=== PATIENT | female | born 1990 | race Two or more races ===

== ENCOUNTER 2024-07-09 09:28 | Emergency (ER) | payer OTHER, SELFPAY ==
[2024-07-09 09:50] VITALS: BP 123/85; PULSE 74; RESP 16; TEMP 37.1; O2SAT 98; BMI 29.6
--- NOTE | 2024-07-09 09:50 | XR_ITS ---
Examination: Pelvic ultrasound, transabdominal, complete Technique: Transabdominal ultrasound of the pelvis performed using grayscale imaging Date and time of exam: July 09, 2024 1004 hours INDICATIONS: Left pelvic pain beginning one week ago, vaginal bleeding beginning 5 days ago FINDINGS: Uterus 9.7 x 4.4 x 5.0 cm Endometrial stripe 0.6 cm No uterine mass or intrauterine gestation Right ovary 2.8 x 1.8 x 3.2 cm arterial flow Left ovary 4.9 x 2.6 x 3.6 cm arterial flow Left ovarian cysts 2.7 x 3.1 x 2.2 cm, 3.2 x 2.1 x 2.9 cm with mild internal debris IMPRESSION: No uterine mass or intrauterine gestation Left ovarian cyst, 2.7 x 3.1 x 2.2 cm, 3.2 x 2.1 x 2.9 cm Suggest 6 month follow-up transabdominal pelvic sonography
[2024-07-09 10:47] LABS: Basophils % (Auto) 1 % (0-2.5); Eosinophils # (Auto) 0.1 Thou/mm3 (0.0-0.5); Eosinophils % (Auto) 1 % (0-10); Hematocrit 40.8 % (36.0-46.0); Hemoglobin 13.7 g/dL (12.0-16.0); Immature Granulocytes % (Auto) 0 % (0-0); Immature Granulocytes Auto 0.02 Thou/mm3 (0.00-0.00); Lymphocytes # (Auto) 2.3 Thou/mm3 (1.0-4.8); Lymphocytes % (Auto) 30 % (10-50); Mean Corpuscular HGB Conc 33.6 g/dl (31.0-37.0); Mean Corpuscular Volume 86 fL (80-100); Monocytes # (Auto) 0.7 Thou/mm3 (0.0-0.8); Monocytes % (Auto) 9 % (0-12); Neutrophils # (Auto) 4.6 Thou/mm3 (1.8-7.7); Neutrophils % (Auto) 60 % (37-80); Nucleated Red Blood Cell % 0 /100 WBC (0); Platelet Count 335 Thou/mm3 (140-440); RDW Standard Deviation 40.3 fL (36.4-46.3); Red Blood Count 4.73 Miln/mm3 (4.00-5.20); White Blood Count 7.6 Thou/mm3 (3.6-11.0)
[2024-07-09 11:05] LABS: Alanine Aminotransferase 15 U/L (10-49); Albumin, Serum 4.9 gm/dL (3.5-5.0); Alkaline Phosphatase 91 U/L (46-116); Anion Gap 9 (7-16); Aspartate Amino Transferase 18 U/L (0-34); BUN/Creatinine Ratio 14 Ratio (12-20); Bilirubin,Total 0.7 mg/dL (0.3-1.2); Blood Urea Nitrogen 10 mg/dL (9-23); Calcium 9.4 mg/dL (8.3-10.6); Calcium (Corrected) 9.4 mg/dL (8.5-10.1); Carbon Dioxide 25.5 mMol/L (20.0-31.0); Chloride 101 mMol/L (98-107); Creatinine (Component) 0.7 mg/dL (0.6-1.3); Estimated Creatinine Clearance 85.8 mL/min (>60); Globulin 2.5 gm/dL (2.3-3.5); Glucose 94 mg/dL (74-106); Lipase 51 U/L (12-53); Osmolality,Calculated 269 (275-295); Potassium 4.3 mMol/L (3.4-5.1); Sodium 135 mMol/L (136-145); Total Protein 7.4 gm/dL (5.7-8.2); eGFR > 60 See Note
[2024-07-09 13:10] LABS: Collection Type, Urine Clean Catch
[2024-07-09 13:22] LABS: HCG Qualitative,Urine Negative
[2024-07-09 13:27] LABS: Bilirubin,Urine Negative (Negative); Blood,Urine 2+ (Negative); Clarity,Urine Clear (Clear/Hazy); Color,Urine Lt-Yellow (Lt Yel-Yel); Culture Indicated,Urine Not Indicated; Glucose, Urine Negative (Negative); Ketones,Urine Negative (Negative); Leukocyte Esterase,Urine Negative (Negative); Nitrite,Urine Negative (Negative); Protein,Urine Negative (Neg - Trace); RBC,Urine 4 /hpf (0-3); Specific Gravity,Urine 1.016 (1.001-1.035); Squamous Epithelial Cell,Urine < 1 /hpf (0-5); Urobilinogen,Urine Negative mg/dL (0.0-1.0); WBC,Urine < 1 /hpf (0-5)
--- NOTE | 2024-07-09 16:20 | PD.EDABDPN ---
ED Abdominal Pain RME/HPI General Chief Complaint: Abdominal Pain Stated complaint: left lower ab pain x 1 week Time seen by provider: 07/09/24 09:36 Arrival date/time: 07/09/24 09:28 33-year-old female presents to the emergency department today with complaint of left sided pelvic pain ongoing x 1 week patient has history of ovarian cyst Limitations: no limitations Related Data Previous Rx's ?Medication ?Instructions ?Recorded cyclobenzaprine 5 mg tablet 5 mg PO Q8H PRN muscle spasm #20 05/30/22 tabs ibuprofen 600 mg tablet 600 mg PO Q6H PRN pain #30 tabs 05/30/22 ibuprofen 600 mg tablet 600 mg PO Q6H #30 tabs 07/09/24 Allergies Allergy/AdvReac Type Severity Reaction Status Date / Time No Known Allergies Allergy Verified 07/09/24 09:29 Review of Systems Review of Systems Systems Reviewed: All systems reviewed, normal except as documented Constitutional Constitutional: Reports system reviewed and no additional complaints, except as documented, Denies fever(s) and Denies headache(s) Eyes Eyes: Reports system reviewed and no additional complaints, except as documented and Denies blurry vision ENT Ears, Nose, Mouth, and Throat: Reports system reviewed and no additional complaints, except as documented, Denies headache(s), Denies nasal congestion and Denies nasal discharge Cardiovascular Cardiovascular: Reports system reviewed and no additional complaints, except as documented, Denies chest pain and Denies dyspnea Respiratory Respiratory: Reports system reviewed and no additional complaints, except as documented, Denies chest congestion, Denies cough and Denies dyspnea Gastrointestinal Gastrointestinal: Reports system reviewed and no additional complaints, except as documented and Denies abdominal pain Genitourinary Genitourinary: Reports system reviewed and no additional complaints, except as documented, Denies abnormal vaginal bleeding and Reports other (Pelvic pain) Integumentary/Breasts Skin/Breast: Reports system reviewed and no additional complaints, except as documented and Denies rash Neurologic Neurologic: Reports system reviewed and no additional complaints, except as documented, Reports as per HPI and Denies headache(s) Past Medical History Past Medical History NEUROLOGIC: Negative Neurological Disorders CARDIAC: Negative Cardiac Disorders ED Exam General Limitations: Present no limitations General appearance: Present alert and in no apparent distress Head Head exam: Present atraumatic, normocephalic and normal inspection Eye Eye exam: Present normal appearance, PERRL and EOMI; Absent conjunctival injection ENT ENT exam: Present normal exam, normal oropharynx and mucous membranes moist Neck Neck exam: Present normal inspection, full ROM and trachea midline Chest Chest inspection: Present normal inspection and symmetric chest wall rise Respiratory Respiratory exam: Present normal lung sounds bilaterally; Absent respiratory distress Cardiovascular Cardiovascular exam: Present regular rate, normal rhythm and normal heart sounds Abdominal Exam Abdominal exam: Present soft and normal bowel sounds; Absent distention, tenderness, guarding, rebound or rigidity Extremities Exam Extremities exam: Present normal inspection and full ROM Back Exam Back exam: Present normal inspection and full ROM Neurological Exam Neurological exam: Present alert, oriented X3, CN II-XII intact, normal gait and reflexes normal; Absent motor sensory deficit Psychiatric Psychiatric exam: Present normal affect and normal mood Skin Skin exam: Present warm, dry, intact and normal color Course Quality Measures none Orders Category Date Time Status US pelvic complete Stat Exams 07/09/24 09:50 Completed CBC Stat Lab 07/09/24 10:30 Completed Comprehensive Metabolic Panel Stat Lab 07/09/24 10:30 Completed HCG Qualitative,Urine Stat Lab 07/09/24 12:15 Completed Lipase Stat Lab 07/09/24 10:30 Completed UA, C/S IF [Urinalysis, C/S if Indicated] Stat Lab 07/09/24 12:15 Completed Vital Signs Vital signs: Vital Signs Temperature 98.8 F 07/09/24 09:50 Pulse Rate 74 07/09/24 09:50 Respiratory Rate 16 07/09/24 09:50 Blood Pressure 123/85 H 07/09/24 09:50 Pulse Oximetry (%) 98 07/09/24 09:50 Oxygen Delivery Method Room Air 07/09/24 09:50 O2 saturation 98% room air within the limits Abdominal Pain MDM MDM Narrative MDM Narrative:: 33-year-old female presents to the emergency department today with complaint of left sided pelvic pain ongoing x 1 week patient has history of ovarian cyst On exam patient well-appearing patient is well-appearing or toxic patient's not appear acute distress patient is soft nontender abdomen Exam patient does have pelvic pain Lab work and UA obtained No acute emergent findings noted ultrasound consistent with ovarian cyst x 2 Patient struck to follow-up with [facility] for further evaluation and possible surgical intervention on an outpatient basis Patient data External records reviewed:: [facility] previous records Clinical information provided by:: patient Social determinants that could affect healthcare access:: none Patient has the following chronic illnesses:: None How is presenting disease/condition affected by chronic disease/condition?: no chronic disease Evaluation data The following diagnostics were reviewed and interpreted by me:: lab results and radiology exam(s) Lab and/or radiology exams considered but not ordered:: Labs and radiology obtained Interpretation Summary: Reviewed by me Medications / Prescriptions Medications or Prescriptions considered but not ordered:: Given Medication administrations:: Given Consultations Consultation(s) initiated? (list below): No Diagnosis Differential diagnosis abdominal pain: abdominal pain, acute appendicitis, calculus of kidney, constipation and diverticulitis Most likely diagnosis given after review of the tests above:: Ovarian cyst Admission Indicated Admission indicated?: not indicated Admission Request Was there a request for admission?: No Disposition Plan Disposition Plan: Discharge Discharge Attestation Discharge Attestation: The patient and all family members were given an opportunity to ask questions and understood the discharge instructions. Discharge instructions specifically effects, indications for sooner follow up or return to the emergency department, and the expected course of current diagnosis. Patient condition: Stable Discharge Plan Plan Patient Disposition: HOME (Self Care) Disposition Comment: Stable Prescriptions/Referrals Prescriptions/Med Rec: New ibuprofen 600 mg tablet 600 mg PO Q6H Qty: 30 0RF No Action ibuprofen 600 mg tablet 600 mg PO Q6H PRN (Reason: pain) Qty: 30 0RF cyclobenzaprine 5 mg tablet 5 mg PO Q8H PRN (Reason: muscle spasm) Qty: 20 0RF Referrals: Sofy Zapata FNP [Primary Care Provider] - In 1 week Problem List Clinical Impression: Ovarian cyst Patient/Caregiver Discharge Instructions Education Materials: ED Ovarian Cyst Additional Instructions: Please follow up with your primary care doctor in the next 24-48hrs for any worsening symptoms return here immediately Print Language: Icelandic Stand Alone Forms: Sabi Award Info., Patient Portal Info Letter WARREN/DARIA Supervising Physician WARREN/DARIA Supervising Physician: Dr. Soria
== END 2024-07-09 14:11 | disposition home or self-care (01) ==
PROVIDERS: Nurse Practitioner Primary Care; Emergency Provider Emergency Medicine; PCP Registered Nurse
DX: N83.202 Unspecified ovarian cyst, left side (principal)
CPT/HCPCS: 36415; 76856; 80053; 81001; 81025; 83690; 85025; 99284

== ENCOUNTER 2024-09-01 19:17 | Emergency (ER) | payer OTHER, SELFPAY ==
[2024-09-01 19:18] VITALS: BMI 29.6
[2024-09-01 19:38] VITALS: BP 116/82; PULSE 110; RESP 20; TEMP 37.3; O2SAT 100
--- NOTE | 2024-09-01 19:44 | XR_ITS ---
Examination: PA chest single view TECHNIQUE: Upright PA chest single view. Examination time: September 01, 2024 1849 hours INDICATIONS: Coughing leading to week ago. FINDINGS: Normal heart size. Lungs are clear. The osseous structures are intact IMPRESSION: No active disease
--- NOTE | 2024-09-01 19:45 | EDNOTE_ITS ---
Upper Respiratory Inf. RME/HPI General Chief Complaint: Flu Like Symptoms Stated Complaint: COUGH Time Seen by Provider: 09/01/24 19:25 Source: patient, RN notes reviewed and old records reviewed Arrival date/time: 09/01/24 19:17 Mode of arrival: ambulatory Limitations: no limitations RME / HPI RME / HPI Narrative: 33yof presents to ED for 2-week history of congestion and cough. Patient reports intermittent fever the past week with headache, body aches and mild sob with coughing spells. Patient saw PCP last and was prescribed Augmentin and promethazine, symptoms have not improved since initiating medications. No cp, n/v or dizziness reporrted. No known sick contacts. Related Data Previous Rx's ?Medication ?Instructions ?Recorded cyclobenzaprine 5 mg tablet 5 mg PO Q8H PRN muscle spa sm #20 05/30/22 tabs ibuprofen 600 mg tablet 600 mg PO Q6H PRN pain #30 t abs 05/30/22 ibuprofen 600 mg tablet 600 mg PO Q6H #30 tabs 07/09 albuterol sulfate 90 mcg/actuation 2 inh inhalation Q4 H PRN shortness 09/01/24 aerosol inhaler of breath or wheezing #18 gr ams benzonatate 100 mg capsule 100 mg PO Q6H PRN cough #30 caps 09/01/24 prednisone 50 mg tablet 50 mg PO QDAY 5 days #5 tabs 09/01/24 Allergies Allergy/AdvReac Type Severity Reaction Status Date / Time No Known Allergies Allergy Verified 09/01/24 19:18 Review of Systems Review of Systems Systems Reviewed: All systems reviewed, normal except as documented Constitutional Constitutional: Reports body ache(s), Reports chills, Reports fever(s) and Reports headache(s) ENT Ears, Nose, Mouth, and Throat: Reports headache(s) and Reports nasal congestion Cardiovascular Cardiovascular: Denies chest pain and Reports dyspnea Respiratory Respiratory: Reports cough and Reports dyspnea Gastrointestinal Gastrointestinal: Denies nausea and Denies vomiting Musculoskeletal Musculoskeletal: Reports myalgias Neurologic Neurologic: Reports headache(s) Past Medical History Surgical History SURGICAL: Positive Abdominal Surgery (appendectomy) Social History SMOKING STATUS: Never smoker SUBSTANCE USE: does not use ALCOHOL: Never Past Medical History Comments PMH COMMENT: denies pmhx ED Exam General Limitations: Present no limitations General appearance: Present alert and in no apparent distress Head Head exam: Present atraumatic and normocephalic Eye Eye exam: Present normal appearance, PERRL and EOMI ENT ENT exam: Present normal oropharynx, mucous membranes moist, TM's normal bilaterally and other (Mild UAC) Neck Neck exam: Present normal inspection and full ROM Chest Chest inspection: Present normal inspection and symmetric chest wall rise Respiratory Respiratory exam: Present normal lung sounds bilaterally and other (No wheezing, rales or rhonchi); Absent respiratory distress Cardiovascular Cardiovascular exam: Present normal rhythm and tachycardia (mild) Extremities Exam Extremities exam: Present normal inspection and full ROM Neurological Exam Neurological exam: Present alert and oriented X3 Psychiatric Psychiatric exam: Present normal affect and normal mood Skin Skin exam: Present warm, dry, intact and normal color Course Quality Measures none Orders Category Date Time Status Bedside COVID-19 Antigen Test NOW Care 09/01/24 19:44 Completed Bedside Influenza A&B Antigen Test NOW Care 09/01/24 19:44 Completed CXR [XR chest 1V] Stat Exams 09/01/24 19:44 Completed Acetaminophen Tab [Tylenol ES Tab] Med 09/01/24 19:44 Discontinued 1,000 mg PO X1 ONE Vital Signs Vital signs: Vital Signs Temperature 99.2 F 09/01/24 19:38 Pulse Rate 110 H 09/01/24 19:38 Respiratory Rate 20 09/01/24 19:38 Blood Pressure 116/82 09/01/24 19:38 Pulse Oximetry (%) 100 09/01/24 19:38 Oxygen Delivery Method Room Air 09/01/24 19:38 Upper Respiratory Infection MDM Narrative MDM Narrative:: 33yof presents to ED for 2-week history of congestion and cough. Patient reports intermittent fever the past week with headache, body aches and mild sob with coughing spells. Patient saw PCP last and was prescribed Augmentin and promethazine, symptoms have not improved since initiating medications. No cp, n/v or dizziness reporrted. No known sick contacts. Will treat for bronchitis. Patient is nontoxic-appearing, afebrile, vitals are stable. No evidence respiratory distress or hypoxia. Encouraged rest, fluids, symptomatic treatment prn. Stable for discharge, RTED precautions given. Patient data External records reviewed:: [facility] previous records (03/09/2025 ED visit for ovarian cyst) Clinical information provided by:: patient Social determinants that could affect healthcare access:: none Patient has the following chronic illnesses:: None How is presenting disease/condition affected by chronic disease/condition?: no chronic disease Evaluation data The following diagnostics were reviewed and interpreted by me:: lab results and radiology exam(s) Lab and/or radiology exams considered but not ordered:: None Interpretation Summary: CXR: no pneumonia per my read covid/flu negative Medications / Prescriptions Medications or Prescriptions considered but not ordered:: No antibiotics recommended at this time Medication administrations:: Medication Administration History Discontinued Medications Acetaminophen (Acetaminophen 500 Mg Tablet) 1,000 mg PO X1 ONE Stop: 09/01/24 19:45 Last Admin: 09/01/24 19:53 Dose: 1,000 mg Documented By: AC Above medication administered in ED Consultations Consultation(s) initiated? (list below): No Diagnosis Upper Respiratory Differential Diagnosis: other (URI, COVID, flu, bronchitis, pneumonia, viral illness) Most likely diagnosis given after review of the tests above:: Bronchitis Admission Indicated Admission indicated?: not indicated Admission Request Was there a request for admission?: No Disposition Plan Disposition Plan: Discharge Discharge Attestation Discharge Attestation: The patient and all family members were given an opportunity to ask questions and understood the discharge instructions. Discharge instructions specifically effects, indications for sooner follow up or return to the emergency department, and the expected course of current diagnosis. Patient condition: Stable Discharge Plan Plan Patient Disposition: HOME (Self Care) Patient condition on transfer: Stable Prescriptions/Referrals Prescriptions/Med Rec: New prednisone 50 mg tablet 50 mg PO QDAY 5 Days Qty: 5 0RF albuterol sulfate 90 mcg/actuation HFA aerosol inhaler 2 inh inhalation Q4H PRN (Reason: shortness of breath or wheezing) Qty: 18 0RF benzonatate 100 mg capsule 100 mg PO Q6H PRN (Reason: cough) Qty: 30 0RF No Action ibuprofen 600 mg tablet 600 mg PO Q6H PRN (Reason: pain) Qty: 30 0RF cyclobenzaprine 5 mg tablet 5 mg PO Q8H PRN (Reason: muscle spasm) Qty: 20 0RF ibuprofen 600 mg tablet 600 mg PO Q6H Qty: 30 0RF Referrals: Sofy Zapata FNP [Primary Care Provider] - In 1 week Problem List Clinical Impression: Bronchitis Patient/Caregiver Discharge Instructions Education Materials: ED Bronchitis, No Antibiotic (Adult) Print Language: Yoruba Stand Alone Forms: Sabi Award Info., Patient Portal Info Letter PA/STRIPPING AND BOOKING MACHINE OPERATOR Supervising Physician PA/STRIPPING AND BOOKING MACHINE OPERATOR Supervising Physician: Estella
[2024-09-01] MEDS: ACETAMINOPHEN 500 MG TABLET 1000 MG PO (19:53)
[2024-09-01 21:33] VITALS: RESP 18
== END 2024-09-01 21:34 | disposition home or self-care (01) ==
PROVIDERS: Emergency Provider Emergency Medicine; PCP Registered Nurse
DX: J40 Bronchitis, not specified as acute or chronic (principal)
CPT/HCPCS: 71045; 87400; 87811; 99283; A9270

== ENCOUNTER → 2024-10-13 | Outpatient (CLI) | payer OTHER, SELFPAY ==
--- NOTE | 2024-10-13 10:02 | XR_ITS ---
Examination: CT chest, without intravenous contrast. Sagittal and coronal 2-D reconstructions. Exam date and time: October 13, 2024 1054 hours INDICATIONS: Right-sided chest pain coughing beginning 2 months ago CTDI:vol (mGy) 9.81 DLP: (mGycm) 329 Technique: Multiple 3.0 mm axial sections of the chest to been obtained. Bone and lung density settings are obtained. Sagittal and coronal 2-D reconstructions have been obtained. Low dose protocols were performed. One or more of the following dose reduction techniques were used; automated exposure control, adjustment of the mA and/or KV according to patient size, use of iterative reconstruction technique. Findings: No thoracic aortic aneurysm dilatation Pulmonary artery segments are not enlarged No paratracheal tracheobronchial or bronchopulmonary adenopathy. No pneumonia or pulmonary edema or pleural disease Fatty liver No gallstones No pancreatic or adrenal mass Kidneys partially visualized no hydronephrosis Osseous structures intact IMPRESSION: No mediastinal lymphadenopathy No pneumonia, pulmonary edema or pleural disease
[2024-10-13 10:40] LABS: HCG Qualitative,Urine Negative
== END | disposition home or self-care (01) ==
PROVIDERS: PCP Registered Nurse; Referring Provider Family Medicine; Visit Provider Family Medicine
DX: R05.3 Chronic cough (principal); Z32.00 Encounter for pregnancy test, result unknown
CPT/HCPCS: 71250; 81025

== ENCOUNTER 2024-12-03 08:30 | Emergency (ER) | payer OTHER, SELFPAY ==
[2024-12-03 08:41] VITALS: BP 137/94; PULSE 90; RESP 18; TEMP 36.7; O2SAT 98
--- NOTE | 2024-12-03 08:42 | XR_ITS ---
Examination: Duplex scan of the upper extremity, unilateral left Date and time of exam: December 03, 2024 0902 hours INDICATIONS: Left arm and shoulder pain beginning one week ago Technique: Duplex scan of the extremity veins using B-mode/grayscale imaging and Doppler spectral analysis and color flow Attention is directed to internal echogenicity, compression and augmentation involving these veins, color flow assessment, spectral analysis Findings: Major deep venous structures in the extremity demonstrate normal course and caliber. There is no evidence of deep vein thrombosis. Normal color flow and spectral analysis Impression: Negative for DVT..
--- NOTE | 2024-12-03 08:42 | XR_ITS ---
Examination: Wrist, left 3 views Technique: Wrist AP, oblique, lateral 3 views Date and time of exam: December 03, 2024 0933 hours INDICATIONS: Injury to the wrist this week, wrist pain FINDINGS: No fracture or dislocation. No cortical bone destruction. No opaque foreign body IMPRESSION: No fracture
--- NOTE | 2024-12-03 08:42 | XR_ITS ---
Examination: Shoulder,left, 3 views Technique: Shoulder AP internal rotation, AP external rotation, Y view shoulder, 3 views Exam date and time :December 03, 2024 0933 hours INDICATIONS: Injury to the shoulder one month ago, shoulder pain FINDINGS: No shoulder fracture or dislocation No AC joint separation IMPRESSION: No shoulder fracture or dislocation
[2024-12-03] MEDS: DIAZEPAM 5 MG TABLET 10 MG PO (08:52)
[2024-12-03] MEDS: IBUPROFEN TAB 600 MG TABLET PO (08:52)
--- NOTE | 2024-12-03 10:34 | PD.EDUPEX ---
Upper Extremity Injury RME/HPI General Chief Complaint: Extremity Injury, Upper Stated Complaint: Left shoulder pain and left arm pain X 1 week Time Seen by Provider: 12/03/24 08:35 Arrival date/time: 12/03/24 08:30 33-year-old female presents emergency department today with complaints of 1 week history of left arm pain patient reports pain is mostly in the shoulder and left wrist patient worse no direct trauma patient ports no chest pain shortness of breath or abdominal pain no chance of Limitations: no limitations Related Data Previous Rx's ?Medication ?Instructions ?Recorded cyclobenzaprine 5 mg tablet 5 mg PO Q8H PRN muscle spasm #20 05/30/22 tabs ibuprofen 600 mg tablet 600 mg PO Q6H PRN pain #30 tabs 05/30/22 ibuprofen 600 mg tablet 600 mg PO Q6H #30 tabs 07/09/24 albuterol sulfate 90 mcg/actuation 2 inh inhalation Q4H PRN shortness 09/01/24 aerosol inhaler of breath or wheezing #18 grams benzonatate 100 mg capsule 100 mg PO Q6H PRN cough #30 caps 09/01/24 cyclobenzaprine 10 mg tablet 10 mg PO TID PRN muscle spasm 10 12/03/24 days #30 tab-caps ibuprofen 600 mg tablet 600 mg PO Q6H #30 tabs 12/03/24 Allergies Allergy/AdvReac Type Severity Reaction Status Date / Time No Known Allergies Allergy Verified 12/03/24 08:34 Review of Systems Review of Systems Systems Reviewed: All systems reviewed, normal except as documented Constitutional Constitutional: Reports system reviewed and no additional complaints, except as documented, Denies fever(s) and Denies headache(s) Eyes Eyes: Reports system reviewed and no additional complaints, except as documented and Denies blurry vision ENT Ears, Nose, Mouth, and Throat: Reports system reviewed and no additional complaints, except as documented, Denies headache(s), Denies nasal congestion and Denies nasal discharge Cardiovascular Cardiovascular: Reports system reviewed and no additional complaints, except as documented, Denies chest pain and Denies dyspnea Respiratory Respiratory: Reports system reviewed and no additional complaints, except as documented, Denies chest congestion, Denies cough and Denies dyspnea Gastrointestinal Gastrointestinal: Reports system reviewed and no additional complaints, except as documented and Denies abdominal pain Musculoskeletal Musculoskeletal: Reports system reviewed and no additional complaints, except as documented, Denies deformity, Denies numbness, Reports stiffness and Denies tingling Integumentary/Breasts Skin/Breast: Reports system reviewed and no additional complaints, except as documented and Denies rash Neurologic Neurologic: Reports system reviewed and no additional complaints, except as documented, Reports as per HPI, Denies headache(s), Denies numbness and Denies tingling Past Medical History Past Medical History NEUROLOGIC: Negative Neurological Disorders CARDIAC: Negative Cardiac Disorders or Congestive Heart Failure RESPIRATORY: Negative Chronic Obstructive Pulmonary Disease (COPD) GENITOURINARY: Negative Renal Disease ENDOCRINE: Negative Diabetes Mellitus Type 1 or Diabetes Mellitus Type 2 Surgical History SURGICAL: Positive Abdominal Surgery (appendectomy) Social History SMOKING STATUS: Never smoker SUBSTANCE USE: does not use ED Exam General Limitations: Present no limitations General appearance: Present alert and in no apparent distress Head Head exam: Present atraumatic, normocephalic and normal inspection Eye Eye exam: Present normal appearance, PERRL and EOMI; Absent conjunctival injection ENT ENT exam: Present normal exam, normal oropharynx and mucous membranes moist Neck Neck exam: Present normal inspection, full ROM and trachea midline Chest Chest inspection: Present normal inspection and symmetric chest wall rise Respiratory Respiratory exam: Present normal lung sounds bilaterally Cardiovascular Cardiovascular exam: Present regular rate, normal rhythm and normal heart sounds Abdominal Exam Abdominal exam: Present soft and normal bowel sounds Extremities Exam Extremities exam: Present full ROM, tenderness (Pain left shoulder and left wrist) and normal capillary refill; Absent joint swelling Back Exam Back exam: Present normal inspection and full ROM Neurological Exam Neurological exam: Present alert, oriented X3 and CN II-XII intact Psychiatric Psychiatric exam: Present normal affect and normal mood Skin Skin exam: Present warm, dry, intact and normal color Course Quality Measures none Orders Category Date Time Status US venous doppler UE LT Stat Exams 12/03/24 08:42 Completed XR shoulder LT min 2V Stat Exams 12/03/24 08:42 Completed XR wrist comp LT min 3V Stat Exams 12/03/24 08:42 Completed Diazepam [Valium] Med 12/03/24 08:43 Discontinued 10 mg PO X1 ONE Ibuprofen Tab [Motrin Tab] Med 12/03/24 08:43 Discontinued 600 mg PO X1 ONE Vital Signs Vital signs: Vital Signs Temperature 98.0 F 12/03/24 08:41 Pulse Rate 90 12/03/24 08:41 Respiratory Rate 18 12/03/24 08:41 Blood Pressure 137/94 H 12/03/24 08:41 Pulse Oximetry (%) 98 12/03/24 08:41 Oxygen Delivery Method Room Air 12/03/24 08:41 O2 saturation 98% room air within normal limits Extremity Injury MDM Narrative MDM Narrative:: 33-year-old female presents emergency department today with complaints of 1 week history of left arm pain patient reports pain is mostly in the shoulder and left wrist patient worse no direct trauma patient reports no chest pain shortness of breath or abdominal pain no chance of On exam patient well-appearing patient does not appear ill or toxic no acute distress Imaging obtained no acute emergent findings noted Patient placed in a sling given pain medication Explained to the patient should symptoms persist or worsen she needs to follow-up with her primary care doctor and have an outpatient MRI Patient data External records reviewed:: [facility] previous records Clinical information provided by:: patient Social determinants that could affect healthcare access:: none Patient has the following chronic illnesses:: See history How is presenting disease/condition affected by chronic disease/condition?: uneffected by Evaluation data The following diagnostics were reviewed and interpreted by me:: radiology exam(s) Lab and/or radiology exams considered but not ordered:: Radiology obtain Interpretation Summary: Reviewed by me Medications / Prescriptions Medications or Prescriptions considered but not ordered:: Given Medication administrations:: Medication Administration History Discontinued Medications Diazepam (Diazepam 5 Mg Tablet) 10 mg PO X1 ONE Stop: 12/03/24 08:44 Last Admin: 12/03/24 08:52 Dose: 10 mg Documented By: SHERRI Ibuprofen (Ibuprofen Tab 600 Mg Tablet) 600 mg PO X1 ONE Stop: 12/03/24 08:44 Last Admin: 12/03/24 08:52 Dose: 600 mg Documented By: SHERRI Given Consultations Consultation(s) initiated? (list below): No Diagnosis Upper Extremity Injury Differential Diagnosis: other (Shoulder sprain, shoulder fracture wrist pain DVT) Most likely diagnosis given after review of the tests above:: Pain left shoulder Admission Indicated Admission indicated?: not indicated Admission Request Was there a request for admission?: No Disposition Plan Disposition Plan: Discharge Discharge Attestation Discharge Attestation: The patient and all family members were given an opportunity to ask questions and understood the discharge instructions. Discharge instructions specifically effects, indications for sooner follow up or return to the emergency department, and the expected course of current diagnosis. Patient condition: Stable Discharge Plan Plan Patient Disposition: HOME (Self Care) Discharge Disposition comment: Stable Prescriptions/Referrals Prescriptions/Med Rec: New cyclobenzaprine 10 mg tablet 10 mg PO TID PRN (Reason: muscle spasm) 10 Days Qty: 30 0RF ibuprofen 600 mg tablet 600 mg PO Q6H Qty: 30 0RF No Action ibuprofen 600 mg tablet 600 mg PO Q6H PRN (Reason: pain) Qty: 30 0RF cyclobenzaprine 5 mg tablet 5 mg PO Q8H PRN (Reason: muscle spasm) Qty: 20 0RF ibuprofen 600 mg tablet 600 mg PO Q6H Qty: 30 0RF albuterol sulfate 90 mcg/actuation HFA aerosol inhaler 2 inh inhalation Q4H PRN (Reason: shortness of breath or wheezing) Qty: 18 0RF benzonatate 100 mg capsule 100 mg PO Q6H PRN (Reason: cough) Qty: 30 0RF Referrals: Ran Ramirez MD [Primary Care Provider] - In 1 week Problem List Clinical Impression: Arm pain, left Patient/Caregiver Discharge Instructions Education Materials: ED Myalgias Additional Instructions: Please follow up with your primary care doctor in the next 24-48hrs for any worsening symptoms return here immediately If your symptoms persist or worsen you may need an MRI for further evaluation Print Language: Turkish Stand Alone Forms: Sabi Award Info., Work/School Release, Patient Portal Info Letter PA/BUSINESS INTELLIGENCE DEVELOPER Supervising Physician PA/BUSINESS INTELLIGENCE DEVELOPER Supervising Physician: Dr. garcia
== END 2024-12-03 11:01 | disposition home or self-care (01) ==
PROVIDERS: Emergency Provider Emergency Medicine; PCP Family Medicine
DX: M79.602 Pain in left arm (principal)
CPT/HCPCS: 73030; 73110; 93971; 99284; A9270

== ENCOUNTER → 2025-01-05 | Outpatient (CLI) | payer OTHER, SELFPAY ==
[2025-01-05 12:25] LABS: HCG Qualitative,Urine Negative
== END | disposition home or self-care (01) ==
LOC: COPL 11:27
PROVIDERS: Referring Provider Radiology Diagnostic Radiology; Visit Provider Radiology Diagnostic Radiology
DX: Z32.00 Encounter for pregnancy test, result unknown (principal)
CPT/HCPCS: 81025

== ENCOUNTER → 2025-01-06 | Outpatient (CLI) | payer OTHER, SELFPAY ==
--- NOTE | 2025-01-06 12:00 | XR_ITS ---
Examination: MRI of brain without intravenous contrast. MRI brain with intravenous contrast. Date and time of exam:January 06, 2025 1230 hours Comparison July 31, 2023 INDICATIONS: Diagnosis demyelinating disease, symptoms headaches blurred vision numbness right side of the face numbness legs and hands dizziness 2 years Technique: Multiple axial and sagittal images of the brain to been obtained. Siemens high-resolution 1.52 Tiki short bore scanner utilized. Sagittal sections, T1 weighted images, TR 500, TE 14, are performed. Axial sections proton-density and T2-weighted images have been obtained. Inversion recovery axial images, TR 9260, TE 111, TR 2500. Diffusion weighted images, axial sections, TR 4800, TE 128, B value 1000. Axial sections, ADC map, TR 4800, TE 128. Axial and coronal images were also obtained post 12 cc gadolinium administered intravenously. Findings:: Enlargement of the sella turcica is not present. The optic chiasm and infundibular stalk are not remarkable. There is no localized enlargement of the medulla or rani. Fourth ventricle and cerebellar tonsils appear normal in position. No subacute area of hemorrhage density is seen. Fourth ventricle is midline. Mass in the cerebellopontine angle region is not evident. 7th and 8th nerve complexes exhibit symmetry Globes are symmetrical Orbital musculature including medial lateral rectus muscles do not exhibit abnormality Increased white matter signal is again noted, no change in scattered punctate foci increased signal in the cerebral white matter Effacement of the cortical sulcal markings is not identified. Mass effect upon the ventricular system is not identified. Diffusion-weighted images demonstrate no focus of restricted diffusion Contrast images demonstrate no abnormal enhancement Impression: Stable scattered punctate foci increased signal in the white matter, demyelinating disease
[2025-01-06 12:07] LABS: HCG Qualitative,Urine Negative
== END | disposition home or self-care (01) ==
LOC: SMRI 11:26
PROVIDERS: PCP Registered Nurse; Referring Provider Registered Nurse; Visit Provider Registered Nurse
DX: R90.82 White matter disease, unspecified (principal); G37.9 Demyelinating disease of central nervous system, unspecified
CPT/HCPCS: 70553; 81025; A9579